=== PATIENT | female | born 1970 | race Caucasian/White ===

== ENCOUNTER 2017-02-15 22:17 | Emergency (ER) | payer OTHER ==
[~2017-02-15] VITALS: Ht 157.5 cm; Wt 52.0 kg
[~2017-02-15 22:17] MED LIST: MACR100C PO; PROM25SU8 PO
[2017-02-15 22:24] VITALS: BP 164/99; PULSE 99; RESP 20; TEMP 97.5; O2SAT 98
[2017-02-15 22:30] VITALS: BP 138/86; PULSE 68; RESP 20; O2SAT 98
[2017-02-15] MEDS ORDERED: SODIUM CHLOR 0.9% 1000 ML INJ 1,000 ML IV ONE ×2 (22:38→23:45)
[2017-02-15] MEDS ORDERED: SODIUM CHLORIDE 0.9% FLUSH 10 ML FLUSH IVF PRN (22:45)
[2017-02-15] MEDS ORDERED: ONDANSETRON HCL 4 MG/2 ML VIAL IV PUSH ONE ×2 (22:45→23:45)
[2017-02-15] MEDS ORDERED: LORazepam 2 MG/ML VIAL IV PUSH ONE (22:45)
--- NOTE | 2017-02-15 22:57 | PD ---
HPI Chief Complaint: Alcohol/Drug Intoxication Time Seen by Provider: 22:29 Travel History International Travel<30 days: No Contact w/Intl Traveler<30days: No History of Present Illness HPI The patient's 46 years old. She arrives to the ER intoxicated with alcohol. Family was concerned that she might be too drunk to go to sleep and that she might vomit and aspirate on her vomitus. The patient drinks alcohol on most days about 1-2 drinks. Tonight she drank much more than that however cannot quantify how much she drank. She reports stress and anxiety which is exacerbated by the absence of anyone with whom she can relate. She denies SI/ HI. No illicit drug abuse. She has no physical pain at time of initial evaluation. The patient states she does not know why she is in the emergency room. [facility] Past Medical History Diminished Hearing: No : 1 Para: 0 Miscarriage: 1 Social History Alcohol Use: Yes (1 GLASS/DAY) Tobacco Use: No Substance Use: No Allergies-Medications (Allergen,Severity, Reaction): Coded Allergies: No Known Allergies (Unverified , 01/07/14) Reported Meds & Prescriptions Reported Meds & Active Scripts Active Review of Systems Except as stated in HPI: all other systems reviewed are Neg General / Constitutional: No: Fever Physical Exam Narrative GENERAL: 46 yo F, WNWD, etoh on breath, crying SKIN: Warm and dry. HEAD: Atraumatic. Normocephalic. EYES: Pupils equal and round. No scleral icterus. No injection or drainage. ENT: No nasal bleeding or discharge. Mucous membranes pink and moist. NECK: Trachea midline. No JVD. CARDIOVASCULAR: Regular rate and rhythm. RESPIRATORY: No accessory muscle use. Clear to auscultation. Breath sounds equal bilaterally. GASTROINTESTINAL: Abdomen soft, non-tender, nondistended. Hepatic and splenic margins not palpable. MUSCULOSKELETAL: Extremities without clubbing, cyanosis, or edema. No obvious deformities. NEUROLOGICAL: Awake and alert. No obvious cranial nerve deficits. Motor grossly within normal limits. Five out of 5 muscle strength in the arms and legs. Normal speech. PSYCHIATRIC: No HI/SI. EtOH on breath. Data Data Last Documented VS Vital Signs Date Time Temp Pulse Resp B/P Pulse Ox O2 Delivery O2 Flow Rate FiO2 02/15/17 22:30 68 20 138/86 98 Room Air 02/15/17 22:24 97.5 VS reviewed Orders Basic Metabolic Panel (Bmp) (02/15/17 22:38) Iv Access Insert/Monitor (02/15/17 22:38) Ecg Monitoring (02/15/17 22:38) Oximetry (02/15/17 22:38) Sodium Chloride 0.9% Flush (Ns Flush) (02/15/17 22:45) Sodium Chlor 0.9% 1000 Ml Inj (Ns 1000 M (02/15/17 22:38) Alcohol (Ethanol) (02/15/17 22:38) Lorazepam Inj (Ativan Inj) (02/15/17 22:45) Ondansetron Inj (Zofran Inj) (02/15/17 22:45) Sodium Chlor 0.9% 1000 Ml Inj (Ns 1000 M (02/15/17 23:45) Labs Laboratory Tests Test 02/15/17 22:45 Sodium Level 144 MEQ/L Potassium Level 3.5 MEQ/L Chloride Level 109 MEQ/L Carbon Dioxide Level 25.1 MEQ/L Anion Gap 10 MEQ/L Blood Urea Nitrogen 6 MG/DL Creatinine 0.83 MG/DL Estimat Glomerular Filtration 73 ML/MIN Rate Random Glucose 126 MG/DL Calcium Level 8.4 MG/DL Ethyl Alcohol Level 248 MG/DL MDM Medical Decision Making Medical Screen Exam Complete: Yes Emergency Medical Condition: Yes Medical Record Reviewed: Yes Differential Diagnosis alcohol intoxication, anxiety, panic attack, electrolyte imbalance Narrative Course Pt reassessed at 1130pm. Mild subjective improvement reported. She has received IVF, Zofran and an 0.25 mg Ativan. She has had no more out loud screaming. She has explained her fitness regimen to the nurse as well as her occupation as a counselor in an elementary school. In this scenario she is improving and will likely be able to go home once we receive her alcohol level results. CBC & BMP Diagram 02/15/17 22:45 EtOH 248 Diagnosis Primary Impression: Alcohol intoxication Qualified Code: F10.920 - Alcohol intoxication, uncomplicated Additional Impression: Anxiety Referrals: Primary Care Physician 2 days Additional Instructions: You have a choice when it comes to health care, and we are glad that you chose [email or web address]. Hopefully, we have met your expectations on today's visit. You are welcome to return to [facility] at any time, as we are committed to meeting the health care needs of our community. Med/Other Pt SpecificInfo: No Change to Meds Disposition: 01 DISCHARGE HOME Condition: Stable Renny Adame MD Feb 15, 2017 22:57
[2017-02-15 23:28] LABS: POTASSIUM 3.5 MEQ/L (3.5-5.1)
[2017-02-15 23:30] VITALS: BP 133/87; PULSE 76; RESP 20; O2SAT 99
[2017-02-15 23:31] LABS: BICARBONATE 25.1 MEQ/L (21.0-32.0)
== END 2017-02-16 00:46 | disposition home or self-care (01) ==
LOC: PHED 22:17
DX: F10.929 Alcohol use, unspecified with intoxication, unspecified (principal); F41.9 Anxiety disorder, unspecified; Y90.8 Blood alcohol level of 240 mg/100 ml or more
CPT/HCPCS: 80048; 80307; 96361; 96374; 96375; 99284; J2060; J2405; J7030